=== PATIENT | female | born 2000 | race Hispanic/Latino ===

== ENCOUNTER 2023-09-22 19:44 | Emergency (ER) | payer BC, MEDICAID, OTHER ==
[2023-09-22] MEDS ORDERED: Acetaminophen 500 MG TAB ONE (20:06)
[2023-09-22 20:55] LABS: Influenza A by NAA Not Detected (NotDetected); Influenza B by NAA Not Detected (NotDetected); SARS-CoV-2 NAA Rapid Test Not Detected (NotDetected)
== END 2023-09-22 21:20 | disposition home or self-care (01) ==
LOC: ERS 19:44
DX: B34.9 Viral infection, unspecified (principal)
CPT/HCPCS: 99283

== ENCOUNTER 2024-04-12 16:28 | Emergency (ER) | payer OTHER ==
[2024-04-12] MEDS ORDERED: Ibuprofen 800 MG TAB ONE (17:25)
[2024-04-12] MEDS ORDERED: predniSONE 20 MG TAB ONE (17:25)
== END 2024-04-12 19:23 | disposition home or self-care (01) ==
LOC: ERS 16:28
DX: J18.9 Pneumonia, unspecified organism (principal); J06.9 Acute upper respiratory infection, unspecified
CPT/HCPCS: 71045; 87081; 87428; 87430; J7512

== ENCOUNTER 2024-09-25 18:49 | Emergency (ER) | payer OTHER ==
[2024-09-25 19:31] LABS: #Basophils Less than 0.03 10x3/uL (0.0-0.2); %Basophils 0.2 % (0.0-1.0); %Eosinophils 2.3 % (0.0-10.0); %Lymphocytes 24.5 % (21.0-51.0); %Monocytes 6.5 % (0.0-10.0); %Neutrophils 66.3 % (42.0-75.0); Hematocrit 38.2 % (36.0-47.0); Hemoglobin 12.6 g/dL (12.0-16.0); Mean Corpuscular Hemoglobin 28.3 pg (27.0-31.0); Mean Corpuscular Volume 85.7 fL (78.0-98.0); Mean Platelet Volume 9.4 fL (7.4-10.4); Platelet Count 267 10x3/uL (130-400); RBC Distribution Width 13.1 % (11.5-14.5); Red Blood Cell (RBC) Count 4.46 mill/uL (4.20-5.40)
[2024-09-25 19:52] LABS: ALT (SGPT) 25 U/L (Less than 34); AST (SGOT) 26 U/L (11-34); Albumin 3.8 g/dL (3.1-4.5); Alkaline Phosphatase 108 U/L (40-110); Anion Gap 13 mmol/L (10-20); BUN (Urea Nitrogen) 10 mg/dL (7.0-18.7); Bilirubin, Total 0.2 mg/dL (0.3-1.2); Calc. Creatinine Clearance 0 mL/min (70-130); Calcium 9.4 mg/dL (7.8-10.44); Carbon Dioxide 21 mmol/L (22-29); Chloride 108 mmol/L (98-107); Estimated GFR 133; Globulin 3.5 g/dL (2.4-3.5); Glucose 124 mg/dL (70-105); Potassium 3.7 mmol/L (3.5-5.1); Protein, Total 7.3 g/dL (6.0-8.3); Sodium 138 mmol/L (136-145)
[2024-09-25 21:25] LABS: Bacteria/HPF None Seen HPF (None Seen); Bilirubin Negative (Negative); Blood, Urine Negative (Negative); CAUTI Indications for Culture Dysuria,urgency,freq; Clarity Clear (Clear); Glucose, Urine (Dipstick) Normal (Negative); Ketone, Urine Negative (Negative); Leukocyte 250 Leu/uL (Negative); Nitrite Negative (Negative); Protein, Urine (Dipstick) Negative (Neg-Trace); RBC/HPF 0-3 HPF (0-3); Specific Gravity, Urine 1.029 (1.002-1.036); Squamous Epithelial 0-3 HPF (0-3); Urobilinogen Normal mg/dL (Less than 2)
[2024-09-25 21:26] LABS: Urine Culture Reflex No No
== END 2024-09-25 22:28 | disposition home or self-care (01) ==
LOC: ERS 18:49
DX: O20.0 Threatened abortion (principal); Z3A.09 9 weeks gestation of pregnancy
CPT/HCPCS: 36415; 76801; 80053; 81001; 84702; 85025; 86900; 86901

== ENCOUNTER 2025-03-25 20:26 | Emergency (ER) | payer MEDICAID, OTHER ==
[2025-03-25 23:53] LABS: #Basophils Less than 0.03 10x3/uL (0.0-0.2); #Eosinophils 0.03 10x3/uL (0.0-0.7); #Monocytes 0.44 10x3/uL (0.11-0.59); #Neutrophils 4.64 10x3/uL (1.40-6.50); %Basophils 0.2 % (0.0-1.0); %Eosinophils 0.5 % (0.0-10.0); %Lymphocytes 13.5 % (21.0-51.0); %Monocytes 7.4 % (0.0-10.0); %Neutrophils 77.6 % (42.0-75.0); Hematocrit 34.5 % (36.0-47.0); Hemoglobin 11.3 g/dL (12.0-16.0); Mean Corpuscular Hemoglobin 26.7 pg (27.0-31.0); Mean Corpuscular Volume 81.4 fL (78.0-98.0); Platelet Count 200 10x3/uL (130-400); Red Blood Cell (RBC) Count 4.24 mill/uL (4.20-5.40); White Blood Cell (WBC) Count 5.98 10x3/uL (4.8-10.8)
[2025-03-25 23:58] LABS: Bacteria/HPF None Seen HPF (None Seen); CAUTI Indications for Culture Alt mental st,lethar; Glucose, Urine (Dipstick) Normal (Negative); Leukocyte Negative Leu/uL (Negative); Protein, Urine (Dipstick) 30 mg/dL (Neg-Trace); RBC/HPF 0-3 HPF (0-3); Specific Gravity, Urine 1.037 (1.002-1.036); WBC/HPF 0-3 HPF (0-3)
[2025-03-26 00:06] LABS: Urine Culture Reflex No No
[2025-03-26 00:10] LABS: ALT (SGPT) 7 U/L (Less than 34); AST (SGOT) 19 U/L (11-34); Albumin 3.0 g/dL (3.1-4.5); Alkaline Phosphatase 153 U/L (40-110); Anion Gap 14 mmol/L (10-20); BUN (Urea Nitrogen) 6 mg/dL (7.0-18.7); Bilirubin, Total 0.3 mg/dL (0.3-1.2); Calc. Creatinine Clearance 0 mL/min (70-130); Calcium 8.7 mg/dL (7.8-10.44); Carbon Dioxide 17 mmol/L (22-29); Chloride 108 mmol/L (98-107); Globulin 3.8 g/dL (2.4-3.5); Glucose 101 mg/dL (70-105); Lipase 13 U/L (8-78); Potassium 3.2 mmol/L (3.5-5.1); Sodium 136 mmol/L (136-145)
== END 2025-03-26 01:20 | disposition home or self-care (01) ==
LOC: ERS 20:26
DX: O99.891 Other specified diseases and conditions complicating pregnancy (principal); R10.9 Unspecified abdominal pain; R19.7 Diarrhea, unspecified; O99.283 Endocrine, nutritional and metabolic diseases complicating pregnancy, third trimester; E87.6 Hypokalemia; Z3A.32 32 weeks gestation of pregnancy
CPT/HCPCS: 76815; 80053; 81001; 83690; 85025; 87428

== ENCOUNTER 2025-04-07 19:26 | Emergency (ER) | payer MEDICAID ==
[2025-04-07 20:13] LABS: CAUTI Indications for Culture Pregnancy; Glucose, Urine (Dipstick) Normal (Negative); Leukocyte 500 Leu/uL (Negative); Protein, Urine (Dipstick) 30 mg/dL (Neg-Trace); RBC/HPF 0-3 HPF (0-3); Specific Gravity, Urine 1.031 (1.002-1.036)
[2025-04-07 20:14] LABS: Bacteria/HPF 1+ HPF (None Seen); Urine Culture Reflex Yes Yes
[2025-04-07] MEDS ORDERED: Ondansetron PF 4 MG/2 ML Vial ONE (20:32)
[2025-04-07 20:51] LABS: #Basophils Less than 0.03 10x3/uL (0.0-0.2); #Eosinophils 0.03 10x3/uL (0.0-0.7); #Monocytes 0.52 10x3/uL (0.11-0.59); #Neutrophils 4.36 10x3/uL (1.40-6.50); %Basophils 0.2 % (0.0-1.0); %Eosinophils 0.5 % (0.0-10.0); %Lymphocytes 15.5 % (21.0-51.0); %Monocytes 8.9 % (0.0-10.0); %Neutrophils 74.4 % (42.0-75.0); Hematocrit 33.0 % (36.0-47.0); Hemoglobin 10.4 g/dL (12.0-16.0); Mean Corpuscular Hemoglobin 26.1 pg (27.0-31.0); Mean Corpuscular Volume 82.7 fL (78.0-98.0); Platelet Count 209 10x3/uL (130-400); Red Blood Cell (RBC) Count 3.99 mill/uL (4.20-5.40); White Blood Cell (WBC) Count 5.86 10x3/uL (4.8-10.8)
[2025-04-07 21:05] LABS: ALT (SGPT) 15 U/L (Less than 34); AST (SGOT) 20 U/L (11-34); Albumin 2.8 g/dL (3.1-4.5); Alkaline Phosphatase 160 U/L (40-110); Anion Gap 16 mmol/L (10-20); BUN (Urea Nitrogen) 7 mg/dL (7.0-18.7); Bilirubin, Total 0.4 mg/dL (0.3-1.2); Calc. Creatinine Clearance 0 mL/min (70-130); Calcium 8.4 mg/dL (7.8-10.44); Carbon Dioxide 18 mmol/L (22-29); Chloride 108 mmol/L (98-107); Globulin 3.3 g/dL (2.4-3.5); Glucose 97 mg/dL (70-105); Lipase 13 U/L (8-78); Potassium 3.5 mmol/L (3.5-5.1); Sodium 138 mmol/L (136-145)
== END 2025-04-07 23:27 | disposition short-term general hospital (02) ==
LOC: ERS 19:26
DX: O99.891 Other specified diseases and conditions complicating pregnancy (principal); R10.30 Lower abdominal pain, unspecified; Z3A.00 Weeks of gestation of pregnancy not specified
CPT/HCPCS: 80053; 81001; 83690; 85025; 87086; 96374; J2405